=== PATIENT | female | born 1965 | race Caucasian/White ===

== ENCOUNTER 2017-12-14 15:52 | Outpatient (CLI) | payer BC | END 2017-12-14 15:53 | disposition home or self-care (01) | LOC: BICRAD 15:52 | PROVIDERS: ATTEND Family Medicine | DX: M25.541 Pain in joints of right hand (principal) ==

== ENCOUNTER 2018-01-14 14:48 | Outpatient (CLI) | payer BC | END 2018-01-14 14:49 | disposition home or self-care (01) | LOC: BICMAMMO 14:48 | PROVIDERS: ATTEND Family Medicine | DX: N60.02 Solitary cyst of left breast (principal); Z00.00 Encounter for general adult medical examination without abnormal findings | CPT/HCPCS: 77066; G0279 ==